=== PATIENT | female | born 1940 | race Caucasian/White ===

== ENCOUNTER 2017-02-10 19:19 | Emergency (ER) | payer OTHER ==
[2017-02-11 00:38] LABS: HEMOGLOBIN 8.4 gm/dl (12.3-15.3); RED BLOOD COUNT 4.03 M/UL (4.00-5.10); WHITE BLOOD COUNT 9.3 K/UL (4.5-11.0)
== END 2017-02-11 04:25 | disposition home or self-care (01) ==
LOC: ER1 19:19
PROVIDERS: Emergency Medicine
DX: L03.116 Cellulitis of left lower limb (principal); E11.628 Type 2 diabetes mellitus with other skin complications; I48.91 Unspecified atrial fibrillation; E11.22 Type 2 diabetes mellitus with diabetic chronic kidney disease; I12.9 Hypertensive chronic kidney disease with stage 1 through stage 4 chronic kidney disease, or unspecified chronic kidney disease; N18.9 Chronic kidney disease, unspecified; Z79.01 Long term (current) use of anticoagulants
CPT/HCPCS: 36415; 80048; 85025; 86140; 87040; 99283

== ENCOUNTER → 2017-04-07 | Outpatient (CLI) | payer OTHER | LOC: US 13:43 | DX: I73.9 Peripheral vascular disease, unspecified (principal) | CPT/HCPCS: 93925 ==

== ENCOUNTER 2020-12-16 14:02 | Inpatient (IN) | payer MEDICARE, OTHER ==
[~2020-12-16] VITALS: Ht 152.4 cm; Wt 54.9 kg
[~2020-12-16 14:02] MED LIST: ASPIRIN81 MG PEG; ASPIRIN81 MG PO; CARDIZEM CD240 MG PO; CATAPRES 0.1MG0.1 MG PO; CEFTIN250 MG/5 M PO; CEFUROXIME250 MG PO; CRESTOR5 MG PEG; CRESTOR5 MG PO; DILTIAZEM 24HR240 MG PO; ELIQUIS2.5 MG PEG; ELIQUIS5 MG PO; GLUCOPHAGE 500500 MG PO; HYDRALAZINE HCL50 MG PO; ISOSORBIDE MONO60 MG PO; LASIX40 MG PO; METFORMIN HCL500 MG PO; NAMENDA5 MG PO; OMNICEF 300 MG300 MG PO; PROTONIX40 MG PEG; PROTONIX40 MG PO; PROZAC20 MG PEG; PROZAC20 MG PO; SEROQUEL50 MG PO; SOTALOL80 MG PO
[2020-12-16 15:11] LABS: HEMOGLOBIN 14.6 gm/dl (12.3-15.3); RED BLOOD COUNT 5.52 M/UL (4.00-5.10); WHITE BLOOD COUNT 14.8 K/UL (4.5-11.0)
[2020-12-17 08:27] LABS: HEMOGLOBIN 13.6 gm/dl (12.3-15.3); RED BLOOD COUNT 5.24 M/UL (4.00-5.10); WHITE BLOOD COUNT 14.4 K/UL (4.5-11.0)
[2020-12-18 05:30] LABS: HEMOGLOBIN 13.1 gm/dl (12.3-15.3); WHITE BLOOD COUNT 14.4 K/UL (4.5-11.0)
[2020-12-18] MEDS ORDERED: EXELON1 EAC1 TD (09:29)
[2020-12-18] MEDS ORDERED: LASIX40 MG PO (09:43)
[2020-12-18] MEDS ORDERED: VITAMIN D31250 MCG PO (09:53)
[2020-12-18] MEDS ORDERED: VALPROIC ACID250 MG PO (09:57)
[2020-12-18] MEDS ORDERED: TRULICITY1.5 MG/0.5 SQ (10:06)
[2020-12-19 12:44] LABS: HEMOGLOBIN 12.4 gm/dl (12.3-15.3); RED BLOOD COUNT 4.84 M/UL (4.00-5.10)
[2020-12-19 12:45] LABS: WHITE BLOOD COUNT 9.1 K/UL (4.5-11.0)
[2020-12-20 08:05] LABS: RED BLOOD COUNT 4.44 M/UL (4.00-5.10); WHITE BLOOD COUNT 8.4 K/UL (4.5-11.0)
[2020-12-20] MEDS ORDERED: KEFLEX CAP 250250 MG PO (12:52)
[2020-12-20] MEDS ORDERED: DILTIAZEM 24HR240 M1 PO (12:52)
[2021-03-21] MEDS ORDERED: NAMENDA10 MG PEG (00:51)
== END 2020-12-20 15:54 | DRG 309 ==
LOC: ER1 14:02 → ZEROF 15:45 → MED SURG 4 12-17 14:35 → ZEROF 12-17 14:35 → MED SURG 4 12-18 15:58
PROVIDERS: Emergency Medicine; Hospitalist; Physician Assistant Medical; ADMIT Internal Medicine Infectious Disease
DX: I48.0 Paroxysmal atrial fibrillation (principal); N39.0 Urinary tract infection, site not specified; N18.9 Chronic kidney disease, unspecified; I12.9 Hypertensive chronic kidney disease with stage 1 through stage 4 chronic kidney disease, or unspecified chronic kidney disease; I25.10 Atherosclerotic heart disease of native coronary artery without angina pectoris; Z79.84 Long term (current) use of oral hypoglycemic drugs; N18.30 Chronic kidney disease, stage 3 unspecified; G30.9 Alzheimer's disease, unspecified; F02.80 Dementia in other diseases classified elsewhere, unspecified severity, without behavioral disturbance, psychotic disturbance, mood disturbance, and anxiety; E11.22 Type 2 diabetes mellitus with diabetic chronic kidney disease; F32.9 Major depressive disorder, single episode, unspecified; Z86.16 Personal history of COVID-19; Z88.1 Allergy status to other antibiotic agents; Z88.0 Allergy status to penicillin; E87.6 Hypokalemia; D72.829 Elevated white blood cell count, unspecified; E83.42 Hypomagnesemia
CPT/HCPCS: 36415; 71045; 80048; 80053; 81001; 82550; 82553; 82962; 83735; 83874; 84439; 84443; 84484; 85025; 85027; 85610; 85730; 87040; 87086; 93005; 96365; 96366; 96367; 96372; 96375; 96376; 97163; 97167; 99285; G0378; J0696; J1160; J3480; U0002

== ENCOUNTER 2021-01-07 22:45 | Emergency (ER) | payer MEDICARE, OTHER ==
[~2021-01-07 22:45] MED LIST changes: +DILTIAZEM 24HR240 M1 PO; +EXELON1 EAC1 TD; +KEFLEX CAP 250250 MG PO; +TRULICITY1.5 MG/0.5 SQ; +VALPROIC ACID250 MG PO; +VITAMIN D31250 MCG PO
[2021-01-08 00:05] LABS: HEMOGLOBIN 10.2 gm/dl (12.3-15.3); RED BLOOD COUNT 3.95 M/UL (4.00-5.10); WHITE BLOOD COUNT 8.3 K/UL (4.5-11.0)
[2021-01-08 00:28] LABS: BUN/CREATININE RATIO 23 (0-10)
[2021-03-21] MEDS ORDERED: NAMENDA10 MG PEG (00:51)
== END 2021-01-08 11:09 | disposition home or self-care (01) ==
LOC: ER1 22:45
PROVIDERS: Physician Assistant
DX: L76.32 Postprocedural hematoma of skin and subcutaneous tissue following other procedure (principal); I13.0 Hypertensive heart and chronic kidney disease with heart failure and stage 1 through stage 4 chronic kidney disease, or unspecified chronic kidney disease; E11.22 Type 2 diabetes mellitus with diabetic chronic kidney disease; N18.9 Chronic kidney disease, unspecified; I50.9 Heart failure, unspecified; I48.91 Unspecified atrial fibrillation; G30.9 Alzheimer's disease, unspecified; F02.80 Dementia in other diseases classified elsewhere, unspecified severity, without behavioral disturbance, psychotic disturbance, mood disturbance, and anxiety; Z88.0 Allergy status to penicillin; Z88.8 Allergy status to other drugs, medicaments and biological substances; Y83.8 Other surgical procedures as the cause of abnormal reaction of the patient, or of later complication, without mention of misadventure at the time of the procedure
CPT/HCPCS: 36415; 70450; 71045; 80053; 82550; 82553; 83874; 83880; 84484; 85025; 85610; 85652; 86140; 93005; 99284

== ENCOUNTER 2021-03-21 04:42 | Inpatient (IN) | payer MEDICARE, OTHER ==
[~2021-03-21] VITALS: Ht 144.8 cm; Wt 57.9 kg
[~2021-03-21 04:42] MED LIST changes: +NAMENDA10 MG PEG
[2021-03-21 06:28] LABS: HEMOGLOBIN 11.7 gm/dl (12.3-15.3); RED BLOOD COUNT 4.89 M/UL (4.00-5.10)
[2021-03-21 06:30] LABS: WHITE BLOOD COUNT 33.7 K/UL (4.5-11.0)
[2021-03-21 07:03] LABS: BUN/CREATININE RATIO 26 (0-10)
[2021-03-21] MEDS ORDERED: XYZAL5 MG PO (09:55)
[2021-03-21] MEDS ORDERED: NORVASC10 MG PEG (10:39)
[2021-03-21] MEDS ORDERED: ZOFRAN4 MG PEG (10:40)
[2021-03-21] MEDS ORDERED: DIVALPROEX SOD125 MG PEG (12:08)
[2021-03-21] MEDS ORDERED: ACETAMINOPHEN500 MG PEG (12:16)
[2021-03-21] MEDS ORDERED: IMODIUM CAP 2 MG2 MG PEG (12:18)
[2021-03-21] MEDS ORDERED: SODIUM CHLORIDE3 ML NEB (12:27)
[2021-03-21] MEDS ORDERED: CHRONULAC20 GM/30 M PEG (12:39)
[2021-03-22 04:23] LABS: HEMOGLOBIN 13.8 gm/dl (12.3-15.3); RED BLOOD COUNT 5.59 M/UL (4.00-5.10); WHITE BLOOD COUNT 15.7 K/UL (4.5-11.0)
[2021-03-23 04:53] LABS: HEMOGLOBIN 11.2 gm/dl (12.3-15.3); RED BLOOD COUNT 4.61 M/UL (4.00-5.10); WHITE BLOOD COUNT 11.3 K/UL (4.5-11.0)
[2021-03-24 05:07] LABS: HEMOGLOBIN 10.5 gm/dl (12.3-15.3); RED BLOOD COUNT 4.34 M/UL (4.00-5.10)
[2021-03-24 14:51] LABS: ADENOVIRUS F 40/41 Not Detected (Negative); ASTROVIRUS Not Detected (Negative); CAMPYLOBACTER Not Detected (Negative); CLOSTRIDIUM DIFFICILE TOX A/B Not Detected (Negative); CRYPTOSPORIDIUM Not Detected (Negative); E.COLI 0157 Not Detected (Negative); ENTAMOEBA HISTOLYTICA Not Detected (Negative); ENTEROAGGREGATIVE E.COLI (EAEC Not Detected (Negative); ENTEROPATHOGENIC E.COLI (EPEC) Not Detected (Negative); ENTEROTOXIGENIC E.COLI (ETEC) Not Detected (Negative); GIARDIA LAMBLIA Not Detected (Negative); NOROVIRUS GI/GII Not Detected (Negative); PLESIOMONAS SHIGELLOIDES Not Detected (Negative); ROTOVIRUS A Not Detected (Negative); SALMONELLA Not Detected (Negative); SAPOVIRUS Not Detected (Negative); SHIG/ENTEROINVAS.ECOLI (EIEC) Not Detected (Negative); SHIGA-LIK TOX.PRO.E.COLI (STEC Not Detected (Negative); VIBRIO Not Detected (Negative); VIBRIO CHOLERAE Not Detected (Negative); YERSINIA ENTEROCOLITICA Not Detected (Negative)
[2021-03-25 02:02] LABS: HEMOGLOBIN 9.3 gm/dl (12.3-15.3); RED BLOOD COUNT 3.89 M/UL (4.00-5.10); WHITE BLOOD COUNT 11.8 K/UL (4.5-11.0)
[2021-03-26 04:40] LABS: HEMOGLOBIN 9.5 gm/dl (12.3-15.3); RED BLOOD COUNT 4.02 M/UL (4.00-5.10); WHITE BLOOD COUNT 11.6 K/UL (4.5-11.0)
[2021-03-27 05:33] LABS: HEMOGLOBIN 9.8 gm/dl (12.3-15.3); RED BLOOD COUNT 4.1 M/UL (4.00-5.10); WHITE BLOOD COUNT 10.9 K/UL (4.5-11.0)
[2021-03-28 04:25] LABS: HEMOGLOBIN 9.1 gm/dl (12.3-15.3); RED BLOOD COUNT 3.85 M/UL (4.00-5.10); WHITE BLOOD COUNT 13.6 K/UL (4.5-11.0)
[2021-03-29 07:14] LABS: HEMOGLOBIN 8.6 gm/dl (12.3-15.3); RED BLOOD COUNT 3.68 M/UL (4.00-5.10); WHITE BLOOD COUNT 10.1 K/UL (4.5-11.0)
[2021-03-30 05:25] LABS: RED BLOOD COUNT 3.86 M/UL (4.00-5.10); WHITE BLOOD COUNT 10.7 K/UL (4.5-11.0)
[2021-03-30 05:39] LABS: BUN/CREATININE RATIO 23 (0-10)
[2021-04-02 03:53] LABS: HEMOGLOBIN 9.9 gm/dl (12.3-15.3); RED BLOOD COUNT 4.12 M/UL (4.00-5.10); WHITE BLOOD COUNT 10.9 K/UL (4.5-11.0)
[2021-04-03 03:57] LABS: HEMOGLOBIN 8.9 gm/dl (12.3-15.3); RED BLOOD COUNT 3.78 M/UL (4.00-5.10); WHITE BLOOD COUNT 10.1 K/UL (4.5-11.0)
--- NOTE | 2021-04-03 07:11 | NUR ---
NOTIFIED SOLO OF PT PLAN FOR SURGERY APPROX [id number] ACCORDING TO NURSE IN ENDO
[2021-04-05 08:29] LABS: HEMOGLOBIN 8.9 gm/dl (12.3-15.3); RED BLOOD COUNT 3.79 M/UL (4.00-5.10); WHITE BLOOD COUNT 8.2 K/UL (4.5-11.0)
[2021-04-06 06:42] LABS: HEMOGLOBIN 8.4 gm/dl (12.3-15.3); RED BLOOD COUNT 3.55 M/UL (4.00-5.10); WHITE BLOOD COUNT 6.4 K/UL (4.5-11.0)
[2021-04-06 07:23] LABS: BUN/CREATININE RATIO 25 (0-10)
[2021-04-06] MEDS ORDERED: HUMALOG 10100 UNITS/ SC (09:45)
[2021-04-06] MEDS ORDERED: DEPAKENE S250 MG/5 M PO (09:45)
[2021-04-06] MEDS ORDERED: LANTUS INS100 UTS/M1 SQ (09:45)
[2021-04-06] MEDS ORDERED: DEPAKENE S250 MG/5 M PEG (10:08)
== END 2021-04-06 14:27 | DRG 64 ==
LOC: ER1 04:42 → MED SURG 4 08:14 → CCU 08:14 → CDU 08:14 → CCU 12:12 → MED SURG 4 03-27 15:07
PROVIDERS: Family Medicine; Internal Medicine; Internal Medicine Infectious Disease; Internal Medicine Nephrology; Physician Assistant Medical; Surgery; ADMIT Internal Medicine
PROC: 0DH63UZ Insertion of Feeding Device into Stomach, Percutaneous Approach (ICD-10-PCS; principal; 2021-04-03 12:30)
DX: I63.542 Cerebral infarction due to unspecified occlusion or stenosis of left cerebellar artery (principal); A41.9 Sepsis, unspecified organism; E11.10 Type 2 diabetes mellitus with ketoacidosis without coma; G93.41 Metabolic encephalopathy; R65.20 Severe sepsis without septic shock; E87.0 Hyperosmolality and hypernatremia; N17.9 Acute kidney failure, unspecified; I13.0 Hypertensive heart and chronic kidney disease with heart failure and stage 1 through stage 4 chronic kidney disease, or unspecified chronic kidney disease; N30.00 Acute cystitis without hematuria; I48.20 Chronic atrial fibrillation, unspecified; E87.2 Acidosis; Z66 Do not resuscitate; Z20.822 Contact with and (suspected) exposure to COVID-19; G93.9 Disorder of brain, unspecified; E11.22 Type 2 diabetes mellitus with diabetic chronic kidney disease; R13.10 Dysphagia, unspecified; G30.9 Alzheimer's disease, unspecified; K21.9 Gastro-esophageal reflux disease without esophagitis; E21.3 Hyperparathyroidism, unspecified; E78.5 Hyperlipidemia, unspecified; F41.9 Anxiety disorder, unspecified; I73.9 Peripheral vascular disease, unspecified; I50.9 Heart failure, unspecified; F02.80 Dementia in other diseases classified elsewhere, unspecified severity, without behavioral disturbance, psychotic disturbance, mood disturbance, and anxiety; F32.9 Major depressive disorder, single episode, unspecified; I49.5 Sick sinus syndrome; N18.30 Chronic kidney disease, stage 3 unspecified; B96.20 Unspecified Escherichia coli [E. coli] as the cause of diseases classified elsewhere; D63.1 Anemia in chronic kidney disease; R19.7 Diarrhea, unspecified; E87.6 Hypokalemia; Z79.01 Long term (current) use of anticoagulants; Z95.0 Presence of cardiac pacemaker; Z79.4 Long term (current) use of insulin; Z79.82 Long term (current) use of aspirin; Z88.1 Allergy status to other antibiotic agents; Z88.8 Allergy status to other drugs, medicaments and biological substances; Z86.16 Personal history of COVID-19; Z88.0 Allergy status to penicillin
CPT/HCPCS: 36415; 36600; 51702; 70450; 71045; 74018; 80048; 80053; 80202; 81001; 82009; 82550; 82553; 82728; 82803; 82947; 82962; 83036; 83540; 83550; 83605; 83735; 83874; 83880; 84132; 84133; 84300; 84439; 84443; 84484; 85025; 85027; 85610; 87040; 87077; 87086; 87186; 87449; 87507; 92526; 92610; 93005; 95816; 96365; 97162; 99285; C1751; C9113; J0692; J0696; J1650; J2704; J3370; J3475; J3480; J7030; J7040; J7070; P9047; U0002; U0003

== ENCOUNTER 2021-05-11 11:55 | Emergency (ER) | payer MEDICARE, OTHER ==
[~2021-05-11 11:55] MED LIST changes: +ACETAMINOPHEN500 MG PEG; +CHRONULAC20 GM/30 M PEG; +DEPAKENE S250 MG/5 M PEG; +DEPAKENE S250 MG/5 M PO; +DIVALPROEX SOD125 MG PEG; +HUMALOG 10100 UNITS/ SC; +IMODIUM CAP 2 MG2 MG PEG; +LANTUS INS100 UTS/M1 SQ; +NORVASC10 MG PEG; +SODIUM CHLORIDE3 ML NEB; +XYZAL5 MG PO; +ZOFRAN4 MG PEG
[2021-05-11 12:47] LABS: HEMOGLOBIN 8.9 gm/dl (12.3-15.3); RED BLOOD COUNT 4.1 M/UL (4.00-5.10); WHITE BLOOD COUNT 25.4 K/UL (4.5-11.0)
[2021-05-11 13:58] LABS: BUN/CREATININE RATIO 39 (0-10)
== END 2021-05-11 19:47 ==
LOC: ER1 11:55
PROVIDERS: Emergency Medicine
DX: D47.9 Neoplasm of uncertain behavior of lymphoid, hematopoietic and related tissue, unspecified (principal); E11.9 Type 2 diabetes mellitus without complications; I48.91 Unspecified atrial fibrillation
CPT/HCPCS: 36415; 71045; 71260; 80053; 81001; 82550; 82553; 84484; 85025; 85610; 85730; 87040; 93005; 99285; Q9967

== ENCOUNTER → 2021-11-15 | Day surgery (SDC) | payer MEDICARE, OTHER ==
[~2021-11-15] MED LIST changes: +NITROGLYCERIN0.4 MG SL
== END | disposition home or self-care (01) ==
LOC: OR 06:15
PROVIDERS: Surgery
PROC: 0DH63UZ Insertion of Feeding Device into Stomach, Percutaneous Approach (ICD-10-PCS; 2021-11-15)
PROC: 0DP63UZ Removal of Feeding Device from Stomach, Percutaneous Approach (ICD-10-PCS; principal; 2021-11-15 09:00)
DX: K94.23 Gastrostomy malfunction (principal); I25.2 Old myocardial infarction; I25.10 Atherosclerotic heart disease of native coronary artery without angina pectoris; I13.0 Hypertensive heart and chronic kidney disease with heart failure and stage 1 through stage 4 chronic kidney disease, or unspecified chronic kidney disease; E11.22 Type 2 diabetes mellitus with diabetic chronic kidney disease; I50.32 Chronic diastolic (congestive) heart failure; N18.30 Chronic kidney disease, stage 3 unspecified; E78.5 Hyperlipidemia, unspecified; I48.0 Paroxysmal atrial fibrillation; R91.8 Other nonspecific abnormal finding of lung field; I49.5 Sick sinus syndrome; F03.90 Unspecified dementia, unspecified severity, without behavioral disturbance, psychotic disturbance, mood disturbance, and anxiety; K21.9 Gastro-esophageal reflux disease without esophagitis; Z88.0 Allergy status to penicillin; Z88.1 Allergy status to other antibiotic agents; Z88.8 Allergy status to other drugs, medicaments and biological substances; Z79.82 Long term (current) use of aspirin; Z79.01 Long term (current) use of anticoagulants; Z79.4 Long term (current) use of insulin; Z79.84 Long term (current) use of oral hypoglycemic drugs; Z79.899 Other long term (current) drug therapy; Z86.73 Personal history of transient ischemic attack (TIA), and cerebral infarction without residual deficits
CPT/HCPCS: 74019; 82962; J2704; J7030; Q9963

== ENCOUNTER → 2022-08-15 | Day surgery (SDC) | payer MEDICARE, OTHER ==
[~2022-08-15] MED LIST changes: +ATIVAN0.5 MG PO; +BISACODYL10 MG PR; +CARBIDOPA-LEVO1 EAC1 PEG; +FERROUS SULFAT325 M2 PEG; +HYDROCODONE-AC1 EACH PEG; +LANTUS100 UNIT/1 SQ; +OMEPRAZOLE20 MG PEG
== END | disposition home or self-care (01) ==
LOC: OR 07:26
PROVIDERS: Surgery
PROC: 0JBD3ZX Excision of Right Upper Arm Subcutaneous Tissue and Fascia, Percutaneous Approach, Diagnostic (ICD-10-PCS; 2022-08-15)
PROC: 0JB83ZX Excision of Abdomen Subcutaneous Tissue and Fascia, Percutaneous Approach, Diagnostic (ICD-10-PCS; principal; 2022-08-15 10:20)
DX: C44.612 Basal cell carcinoma of skin of right upper limb, including shoulder (principal); Q82.5 Congenital non-neoplastic nevus; L82.1 Other seborrheic keratosis; L98.0 Pyogenic granuloma; I13.0 Hypertensive heart and chronic kidney disease with heart failure and stage 1 through stage 4 chronic kidney disease, or unspecified chronic kidney disease; I50.32 Chronic diastolic (congestive) heart failure; N18.30 Chronic kidney disease, stage 3 unspecified; I25.2 Old myocardial infarction; I25.10 Atherosclerotic heart disease of native coronary artery without angina pectoris; E78.5 Hyperlipidemia, unspecified; I48.0 Paroxysmal atrial fibrillation; I49.5 Sick sinus syndrome; K21.9 Gastro-esophageal reflux disease without esophagitis; Z98.62 Peripheral vascular angioplasty status; Z88.0 Allergy status to penicillin; Z88.8 Allergy status to other drugs, medicaments and biological substances; Z79.82 Long term (current) use of aspirin; Z79.01 Long term (current) use of anticoagulants; Z79.4 Long term (current) use of insulin; Z79.84 Long term (current) use of oral hypoglycemic drugs; Z79.899 Other long term (current) drug therapy; Z86.73 Personal history of transient ischemic attack (TIA), and cerebral infarction without residual deficits; Z93.1 Gastrostomy status
CPT/HCPCS: 82962; J1100; J2001; J2405; J2704; J3010